=== PATIENT | female | born 1985 | race Caucasian/White ===

== ENCOUNTER 2018-04-21 17:16 | Emergency (ER) | payer SELFPAY ==
[2018-04-21] MEDS ORDERED: KETOROLAC TROMETHAMINE 60 MG/2 ML VIAL IM ONE (17:27)
[2018-04-21] MEDS ORDERED: IBUPROFEN 400 MG TABLET PO ONE (17:35)
[2018-04-21] MEDS ORDERED: IBUPROFEN 400 MG TABLET ONE (17:37)
--- NOTE | 2018-04-21 17:42 | ERNOTE ---
Lower Extremity HPI - Narrative Date of Service: 04/21/18 - General Lower Extremities Pain: ankle: right Time Seen by Provider: 04/21/18 17:22 Source: patient Exam Limitations: no limitations - Immun/Allergies/Home Medications Allergies/Adverse Reactions: Allergies Allergy/AdvReac Type Severity Reaction Status Date / Time latex AdvReac Verified 04/21/18 17:29 Penicillins AdvReac Verified 04/21/18 17:29 Home Medications: HOME MEDICATIONS Albuterol Sulfate [Proair Hfa] 8.5 gm IH PRN PRN 04/21/18 [Last Taken Unknown] oxyCODONE HCL/ACETAMINOPHEN [Percocet 5 MG/325 MG] 1 tab PO Q4H PRN #20 tab [Last Taken Unknown] - History of Present Illness Narrative: Pt. comes in by [facility] with c/o R ankle pain since just prior to arrival when she fell off of a bed when she was cleaning a ceiling fan and felt a pop and heard a snap. Pt. denies any, numbness, tingling, fever, SOB, CP, NVD, or alleviating factors despite using ice and Tylenol but states that she is unable to put weight on it. Occurred: just prior to arrival Location of Incident: home Method of Injury: Reports: fell Reason for Fall: Reports: lost balance Loss of Consciousness: Reports: no loss of consciousness Modifying Factors - (Improves): Reports: other - denies Modifying Factors - (Worsens): Reports: movement, other - ambulation Associated Symptoms: Reports: snapping, popping sensation. Denies: dizzy/light headedness, headache, weakness, sensory loss, chest pain, vomiting/diarrhea, bowel/bladder problems, other injuries Other Injuries: Reports: none Subsequent Symptoms: Denies: sensory loss, numbness, motor loss, bowel/bladder problem Prior Treament: Denies: recently seen, treated by physician, recently hospitalized, similar symptoms before, currently on antibiotics Review of Systems - Review of Systems Constitutional: Present: no symptoms reported. Absent: fever, chills, weakness , fatigue, malaise EYE: Present: no symptoms reported. Absent: eye pain, double vision ENT: Present: no symptoms reported Respiratory: Present: no symptoms reported. Absent: shortness of breath, cough , wheezing Cardiology: Present: no symptoms reported. Absent: chest pain, palpitations, edema Gastrointestinal/Abdominal: Present: no symptoms reported. Absent: nausea, vomiting, diarrhea, abdominal pain Genitourinary: Present: no symptoms reported Musculoskeletal: Present: joint pain - R ankle Skin: Present: no symptoms reported. Absent: rash, change in color Neurological: Present: no symptoms reported. Absent: headache, dizziness/light- headedness, numbness, tingling All Other Systems: All systems neg except as marked - Patient's Past Medical History Patient History - Medical: No pertinent hx Physical Exam - Physical Exam General Appearance: Present: wd/wn, alert, no apparent distress Head Exam: Present: normal inspection, no evidence of injury, no tenderness w palpation Eye Exam: Normal inspection: bilateral Respiratory: Present: no respiratory distress, normal breath sounds, no accessory muscle use, chest nontender, lungs clear Cardiovascular/Chest: Present: regular rate, rhythm, no murmur, normal peripheral pulses Gastrointestinal/Abdominal: Present: normal bowel sounds, nontender, nondistended, soft Back Exam: Present: normal inspection Extremity Exam: Present: bony tenderness - R distal fib just above lateral malleolus, joint swelling - R ankle Neurological Exam: Present: alert, oriented, normal mood/affect, no motor/ sensory deficits Skin Exam: Present: normal color, warm/dry. Absent: pallor, skin rash ED Progress - Date and Time Seen: Date and Time: 04/21/18 18:17 Discussed with Ryley sorensen and he recommends putting pt. in sugar tong with foot plate OCL and having her follow up in the office on Tuesday. - Vital Signs Patient's Vital Signs:: I have reviewed the patient's vital signs. - X-Ray X-Ray #1 X-Ray: ankle Interpretation: Interp. by me X-ray Comments: R distal fib fracture nondisplaced Departure Clinical Impression: Ankle fracture Qualifiers: Encounter type: initial encounter Fracture type: closed Laterality: right Qualified Code(s): S82.891A - Other fracture of right lower leg, initial encounter for closed fracture - Departure Disposition: Home self-care Condition: Good Instructions: Undisplaced Fibular Ankle Fracture Treated With Immobilization, Adult, Form - Excuse from Work, School, or Physical Activity Additional Instructions: Please follow up with orthopedics by calling office on tuesday for appointment next week. Do not put any pressure on this foot. Prescriptions: oxyCODONE HCL/ACETAMINOPHEN [Percocet 5 MG/325 MG] 1 tab PO Q4H PRN #20 tab PRN Reason: Pain
[2018-04-21 18:12] VITALS: BP 113/62
== END 2018-04-21 18:40 | disposition home or self-care (01) ==
LOC: ER 17:16
CPT/HCPCS: 29515; 73610; 99284